=== PATIENT | male | born 1945 | race Two or more races ===

== ENCOUNTER 2017-04-24 07:30 | Inpatient (IN) | payer OTHER ==
[2017-04-24] MEDS ORDERED: LOSARTAN POTASS50 MG PO (11:48)
== END 2017-05-07 11:12 | disposition home or self-care (01) | DRG 708 ==
LOC: O/R 05-05 06:00 → SURH 05-05 06:00
PROVIDERS: Urology
PROC: 07TC0ZZ Resection of Pelvis Lymphatic, Open Approach (ICD-10-PCS; 2017-05-05)
PROC: 0VT00ZZ Resection of Prostate, Open Approach (ICD-10-PCS; principal; 2017-05-05 07:00)
DX: N40.0 Benign prostatic hyperplasia without lower urinary tract symptoms (principal)

== ENCOUNTER → 2017-05-02 | Outpatient (CLI) | payer OTHER ==
[~2017-05-02] MED LIST: LOSARTAN POTASS50 MG PO
== END | disposition home or self-care (01) ==
LOC: LAB 08:48
DX: N39.0 Urinary tract infection, site not specified (principal); N40.1 Benign prostatic hyperplasia with lower urinary tract symptoms; R82.79 Other abnormal findings on microbiological examination of urine

== ENCOUNTER → 2017-05-19 12:11 | Outpatient (CLI) | payer OTHER | END | disposition home or self-care (01) | LOC: LAB 12:11 | DX: N30.00 Acute cystitis without hematuria (principal) ==

== ENCOUNTER 2017-07-17 18:48 | Inpatient (IN) | payer OTHER ==
[~2017-07-17] VITALS: Ht 170.2 cm; Wt 89.8 kg
== END 2017-07-20 13:06 | disposition home or self-care (01) | DRG 802 ==
LOC: ER 18:48 → SEC-K 19:44 → SURH 19:44 → O/R 22:07 → SURH 07-18 10:57
PROVIDERS: Urology
PROC: 079H3ZX Drainage of Right Inguinal Lymphatic, Percutaneous Approach, Diagnostic (ICD-10-PCS; principal; 2017-07-17 21:00)
DX: L04.1 Acute lymphadenitis of trunk (principal); A41.9 Sepsis, unspecified organism; B95.61 Methicillin susceptible Staphylococcus aureus infection as the cause of diseases classified elsewhere; B95.1 Streptococcus, group B, as the cause of diseases classified elsewhere; C61 Malignant neoplasm of prostate

== ENCOUNTER 2020-08-08 05:54 | Day surgery (SDC) | payer OTHER ==
[~2020-08-08 05:54] MED LIST changes: +ALTOPREV20 MG PO; +TROMBONEX CAPS1 EACH PO
[2020-08-08] MEDS ORDERED: PERCOCET 5-3251 EACH PO (10:21)
== END 2020-08-08 17:45 | disposition home or self-care (01) ==
LOC: CIR.AMB 05:54
PROVIDERS: ATTEND Surgery
DX: N52.31 Erectile dysfunction following radical prostatectomy (principal); Z20.822 Contact with and (suspected) exposure to COVID-19
CPT/HCPCS: 54405; C1813